=== PATIENT | female | born 1935 | race Caucasian/White ===

== ENCOUNTER 2021-06-21 14:31 | Emergency (ER) | payer OTHER ==
[~2021-06-21] VITALS: Ht 157.5 cm; Wt 79.8 kg
[~2021-06-21 14:31] MED LIST: AVAPRO150 MG PO; COZAAR100 MG; SIMVASTATIN10 MG; SIMVASTATIN10 MG PO; SYNTHROID50 MCG; SYNTHROID75 MCG; Synthroid PO
== END 2021-06-21 16:36 | disposition home or self-care (01) ==
LOC: ER 14:31
DX: R60.0 Localized edema (principal)